=== PATIENT | male | born 1995 | race Two or more races ===

== ENCOUNTER 2019-02-23 08:19 | Emergency (ER) | payer SELFPAY ==
[~2019-02-23] VITALS: Ht 182.9 cm; Wt 99.8 kg
[2019-02-23 08:30] VITALS: BP 152/87
[2019-02-23] MEDS ORDERED: KETOROLAC 30 MG/ML VIAL. IV ONE (08:45)
[2019-02-23] MEDS ORDERED: IV NORMAL SALINE 1000ML BAG 1,000 ML IV SCH (08:45)
[2019-02-23] MEDS ORDERED: ONDANSETRON PF 4 MG/2 ML VIAL. IV ONE (08:45)
--- NOTE | 2019-02-23 08:52 | PHYS DOC ---
Past Medical History Past Medical History: No Pertinent History Past Surgical History: Appendectomy Alcohol Use: Occasionally Drug Use: None Adult General Chief Complaint Chief Complaint: ABDOMINAL PAIN HPI HPI Patient is a 23 year old male who presents with complaining of abdominal pain and nausea and vomiting and diarrhea. 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 Patient complaining of intermittent episodes of right-sided abdominal pain as a sharp pain that lasts for seconds to minutes and rated his pain 8/10. Patient also complaining of one or 2 episodes of vomiting after eating for the last 10 days with multiple episodes of nonbloody diarrhea. Patient complaining of decrease of appetite and dysuria. Patient denies fever and chills, sick contact, history of the same problem, or recent seeking medical attention for current problem. Review of Systems Review of Systems Constitutional: Denies fever or chills [] Eyes: Denies change in visual acuity, redness, or eye pain [] HENT: Denies nasal congestion or sore throat [] Respiratory: Denies cough or shortness of breath [] Cardiovascular: No additional information not addressed in HPI [] GI: Reports abdominal pain, nausea, vomiting, diarrhea [] : Denies dysuria or hematuria [] Musculoskeletal: Denies back pain or joint pain [] Integument: Denies rash or skin lesions [] Neurologic: Denies headache, focal weakness or sensory changes [] Endocrine: Denies polyuria or polydipsia [] All other systems were reviewed and found to be within normal limits, except as documented in this note. Current Medications Current Medications Current Medications Medications (Trade) Dose Ordered Sig/[facility] Start Time Stop Time Status Last Admin Dose Admin Ketorolac Tromethamine (Toradol 30mg Vial) 30 mg 1X ONCE 02/23/19 08:45 02/23/19 08:53 DC 02/23/19 09:02 30 MG Ondansetron HCl (Zofran) 4 mg 1X ONCE 02/23/19 08:45 02/23/19 08:53 DC 02/23/19 09:02 4 MG Sodium Chloride 1,000 ml @ 1,000 mls/hr Q1H 02/23/19 08:45 02/23/19 09:44 DC 02/23/19 09:02 1,000 MLS/HR Allergies Allergies Allergies Coded Allergies Type Severity Reaction Last Updated Verified Penicillins Allergy Unknown 02/23/19 Yes Physical Exam Physical Exam Constitutional: Well developed, well nourished, no acute distress, non-toxic appearance. [] HENT: Normocephalic, atraumatic, oropharynx moist. Eyes: PERRLA, EOMI, conjunctiva normal, no discharge. [] Neck: Normal range of motion, no tenderness, supple, no stridor. [] Cardiovascular:Heart rate regular rhythm, no murmur [] Lungs & Thorax: Bilateral breath sounds clear to auscultation [] Abdomen: Bowel sounds normal, soft, no tenderness, right quadrant guarding, no masses, no pulsatile masses. [] Skin: Warm, dry, no erythema, no rash. [] Back: No tenderness, no CVA tenderness. [] Extremities: No tenderness, no cyanosis, no clubbing, ROM intact, no edema. [] Neurologic: Alert and oriented X 3, normal motor function, normal sensory function, no focal deficits noted. [] Psychologic: Affect normal, judgement normal, mood normal. [] Current Patient Data Vital Signs Vital Signs Date Time Temp Pulse Resp B/P (MAP) Pulse Ox O2 Delivery O2 Flow Rate FiO2 02/23/19 08:30 98.6 60 16 152/87 (108) 97 Room Air 98.6 Lab Values Laboratory Tests Test 02/23/19 08:56 02/23/19 09:45 White Blood Count 6.3 x10^3/uL (4.0-11.0) Red Blood Count 4.91 x10^6/uL (4.30-5.70) Hemoglobin 15.6 g/dL (13.0-17.5) Hematocrit 45.6 % (39.0-53.0) Mean Corpuscular Volume 93 fL (79-100) Mean Corpuscular Hemoglobin 32 pg (25-35) Mean Corpuscular Hemoglobin Concent 34 g/dL (31-37) Red Cell Distribution Width 13.1 % (11.5-14.5) Platelet Count 258 x10^3/uL (140-400) Neutrophils (%) (Auto) 58 % (31-73) Lymphocytes (%) (Auto) 33 % (24-48) Monocytes (%) (Auto) 7 % (0-9) Eosinophils (%) (Auto) 1 % (0-3) Basophils (%) (Auto) 1 % (0-3) Neutrophils # (Auto) 3.6 x10^3/uL (1.8-7.7) Lymphocytes # (Auto) 2.1 x10^3/uL (1.0-4.8) Monocytes # (Auto) 0.5 x10^3/uL (0.0-1.1) Eosinophils # (Auto) 0.1 x10^3/uL (0.0-0.7) Basophils # (Auto) 0.1 x10^3/uL (0.0-0.2) Sodium Level 141 mmol/L (136-145) Potassium Level 4.0 mmol/L (3.5-5.1) Chloride Level 107 mmol/L (98-107) Carbon Dioxide Level 25 mmol/L (21-32) Anion Gap 9 (6-14) Blood Urea Nitrogen 9 mg/dL (8-26) Creatinine 0.9 mg/dL (0.7-1.3) Estimated GFR (Cockcroft-Gault) 102.8 BUN/Creatinine Ratio 10 (6-20) Glucose Level 105 mg/dL (70-99) H Calcium Level 8.9 mg/dL (8.5-10.1) Total Bilirubin 0.3 mg/dL (0.2-1.0) Aspartate Amino Transferase (AST) 16 U/L (15-37) Alanine Aminotransferase (ALT) 44 U/L (16-63) Alkaline Phosphatase 61 U/L (46-116) Total Protein 6.7 g/dL (6.4-8.2) Albumin 3.4 g/dL (3.4-5.0) Albumin/Globulin Ratio 1.0 (1.0-1.7) Lipase 62 U/L (73-393) L Urine Collection Type Unknown Urine Color Yellow Urine Clarity Clear Urine pH 6.5 Urine Specific Pool 1.015 Urine Protein Negative mg/dL (NEG-TRACE) Urine Glucose (UA) Negative mg/dL (NEG) Urine Ketones (Stick) Negative mg/dL (NEG) Urine Blood Negative (NEG) Urine Nitrite Negative (NEG) Urine Bilirubin Negative (NEG) Urine Urobilinogen Dipstick 1.0 mg/dL (0.2 mg/dL) Urine Leukocyte Esterase Negative (NEG) Urine RBC 0 /HPF (0-2) Urine WBC 1-4 /HPF (0-4) Urine Squamous Epithelial Cells Occ /LPF Urine Bacteria 0 /HPF (0-FEW) Urine Mucus Slight /LPF Urine Opiates Screen Neg (NEG) Urine Methadone Screen Neg (NEG) Urine Barbiturates Neg (NEG) Urine Phencyclidine Screen Neg (NEG) Urine Amphetamine/Methamphetamine Neg (NEG) Urine Benzodiazepines Screen Neg (NEG) Urine Cocaine Screen Neg (NEG) Urine Cannabinoids Screen Pos (NEG) Urine Ethyl Alcohol Neg (NEG) Laboratory Tests 02/23/19 08:56 Laboratory Tests 02/23/19 08:56 EKG EKG [] Radiology/Procedures Radiology/Procedures [facility] [address] [place] [address] IMAGING REPORT Signed PATIENT: FERDINAND BLACKWELL ACCOUNT: [id number] : 1995 LOCATION: ER AGE: 23 SEX: M EXAM STATUS: REG ER ORD. PHYSICIAN: DONITA GARCIA MD REASON: right side abdominal pain PROCEDURE: ABDOMEN LTD Limited abdomen ultrasound study Clinical indications: Right upper quadrant abdominal pain FINDINGS: The pancreas and abdominal aorta and IVC are obscured by overlying bowel gas. There is diffuse attenuation of sound throughout the liver which may be seen with fatty infiltration of the liver. This limits sonographic evaluation of the liver for focal hepatic lesions. No focal hepatic mass is seen otherwise. The liver is enlarged measuring 20.3 cm in length. Biliary sludge is seen within the gallbladder. No gallbladder distention or gallbladder wall thickening is seen. The extra hepatic bile duct measures 5 mm in caliber which is normal. The length of the right kidney is 12.7 cm. No hydronephrosis or renal mass or perinephric fluid collection is seen on this side. IMPRESSION: Biliary sludge within the gallbladder. Fatty infiltration of the liver. Hepatomegaly. Electronically signed by: Austin Palmer MD (02/23/2019 9:36 AM) [facility] DICTATED and SIGNED BY: AUSTIN PALMER MD DATE: 02/23/19 0936 Course & Med Decision Making Course & Med Decision Making Pertinent Labs and Imaging studies reviewed. (See chart for details) Evaluation of patient in ED showed 23-year-old male patient with complaining of upper abdominal pain and episodes of nausea and vomiting and diarrhea for 2 weeks. Patient had unremarkable physical exam and labs. Abdominal ultrasound showed gallbladder sludge. Patient with IV fluid and Zofran and Toradol and felt better. Patient was advised to follow up with on-call surgeon or primary care physician for more evaluation regarding gallbladder sludge. Patient was advised to not eat greasy food. I've spoken with the patient and/or caregivers. I've explained the patient's condition, diagnosis and treatment plan based on information available to me at this time. I've answered the patient's and/or caregivers questions and addressed any concerns. The patient and/or caregivers have a good understanding the patient's diagnosis, condition and treatment plan as can be expected at this point. Vital signs have been stabilized. The patient's condition is stable for discharge from the emergency department. The patient will pursue further outpatient evaluation with her primary care provider or other designated consulting physician as outlined in the discharge instructions. Patient and/or caregivers are agreeable to this plan of care and follow-up instructions have been explained in detail. The patient and/or caregivers have received these instructions in written format and expressed understanding of these discharge instructions. The patient and her caregivers are aware that if any significant change in condition or worsening of symptoms should prompt him to immediately return to this of the closest emergency department. If an emergent department is not readily available I would encourage him to call 911. Tation Disclaimer Dragon Disclaimer This electronic medical record was generated, in whole or in part, using a voice recognition dictation system. Departure Departure Impression: Primary Impression: Gallbladder sludge Additional Impression: Acute gastroenteritis Disposition: HOME, SELF-CARE (@1056) Condition: IMPROVED Referrals: VILMA TOWNSEND MD Patient Instructions: Biliary Colic, Viral Gastroenteritis Additional Instructions: Drink plenty of liquids Follow-up with your primary care physician in 3-5 days Return to ER if not getting better Do not eat greasy food Follow-up with on-call surgeon for gallbladder evaluation and treatment Scripts Tramadol Hcl (ULTRAM) 50 Mg Tablet 50 MG PO Q6HRS PRN for PAIN, #14 TAB 0 Refills Prov: DONITA GARCIA MD 02/23/19 Ondansetron Hcl (ZOFRAN) 4 Mg Tablet 1 TAB PO PRN Q6-8HRS for nausea, #12 TAB Prov: DONITA GARCIA MD 02/23/19 Problem Qualifiers DONITA GARCIA MD Feb 23, 2019 08:52
[2019-02-23 09:08] LABS: BASO # 0.1 x10^3/uL (0.0-0.2); BASO % 1 % (0-3); EOS # 0.1 x10^3/uL (0.0-0.7); EOS % 1 % (0-3); HEMATOCRIT 45.6 % (39.0-53.0); HEMOGLOBIN 15.6 g/dL (13.0-17.5); LYMPH # 2.1 x10^3/uL (1.0-4.8); LYMPH % 33 % (24-48); MEAN CORPUSCULAR HEMOGLOBIN 32 pg (25-35); MEAN CORPUSCULAR HGB CONC 34 g/dL (31-37); MEAN CORPUSCULAR VOLUME 93 fL (79-100); MONO # 0.5 x10^3/uL (0.0-1.1); MONO % 7 % (0-9); NEUT # 3.6 x10^3/uL (1.8-7.7); NEUT % 58 % (31-73); PLATELET COUNT 258 x10^3/uL (140-400); RED BLOOD COUNT 4.91 x10^6/uL (4.30-5.70); RED CELL DISTRIBUTION WIDTH 13.1 % (11.5-14.5); WHITE BLOOD COUNT 6.3 x10^3/uL (4.0-11.0)
[2019-02-23 09:20] LABS: CALCIUM 8.9 mg/dL (8.5-10.1); CREATININE 0.9 mg/dL (0.7-1.3); GFR 102.8
[2019-02-23 09:25] LABS: ALBUMIN 3.4 g/dL (3.4-5.0); TOTAL BILIRUBIN 0.3 mg/dL (0.2-1.0); TOTAL PROTEIN 6.7 g/dL (6.4-8.2)
--- NOTE | 2019-02-23 09:39 | RAD ---
Limited abdomen ultrasound study Clinical indications: Right upper quadrant abdominal pain FINDINGS: The pancreas and abdominal aorta and IVC are obscured by overlying bowel gas. There is diffuse attenuation of sound throughout the liver which may be seen with fatty infiltration of the liver. This limits sonographic evaluation of the liver for focal hepatic lesions. No focal hepatic mass is seen otherwise. The liver is enlarged measuring 20.3 cm in length. Biliary sludge is seen within the gallbladder. No gallbladder distention or gallbladder wall thickening is seen. The extra hepatic bile duct measures 5 mm in caliber which is normal. The length of the right kidney is 12.7 cm. No hydronephrosis or renal mass or perinephric fluid collection is seen on this side. IMPRESSION: Biliary sludge within the gallbladder. Fatty infiltration of the liver. Hepatomegaly. Electronically signed by: Roger Palmer MD (02/23/2019 9:36 AM) [facility]
[2019-02-23 09:56] LABS: BILIRUBIN,URINE NEGATIVE (NEG); CLARITY,URINE CLEAR; COLOR,URINE YELLOW; NITRITE,URINE NEGATIVE (NEG); PH,URINE 6.5; PROTEIN,URINE NEGATIVE (NEG-TRACE)
[2019-02-23 10:22] LABS: RBC,URINE 0 /HPF (0-2)
[2019-02-23 10:23] LABS: BACTERIA,URINE 0 /HPF (0-FEW); SQUAMOUS EPITHELIAL CELL,UR OCC /LPF
[2019-02-23 10:48] LABS: AMPHETAMINE/METHAMPHETAMINE NEG (NEG); BARBITURATES NEG (NEG); BENZODIAZEPINES NEG (NEG); CANNABINOIDS POS (NEG); COCAINE NEG (NEG); METHADONE NEG (NEG); OPIATES NEG (NEG); PHENCYCLIDINE NEG (NEG)
[2019-02-23] MEDS ORDERED: ONDA4TAB7 PO (10:59)
[2019-02-23] MEDS ORDERED: TRAM-48 PO (10:59)
== END 2019-02-23 11:00 | disposition home or self-care (01) ==
LOC: ER 08:19
DX: K82.9 Disease of gallbladder, unspecified (principal); K52.89 Other specified noninfective gastroenteritis and colitis; R30.0 Dysuria; Z90.89 Acquired absence of other organs; Z88.0 Allergy status to penicillin
CPT/HCPCS: 36415; 76705; 80053; 80307; 81001; 83690; 85025; 96361; 96374; 96375; 99285; J1885; J2405; J7030

== ENCOUNTER 2019-02-26 11:46 | Emergency (ER) | payer SELFPAY ==
[~2019-02-26] VITALS: Ht 190.5 cm; Wt 99.8 kg
[~2019-02-26 11:46] MED LIST: ONDA4TAB7 PO; TRAM-48 PO
--- NOTE | 2019-02-26 13:54 | PHYS DOC ---
Past Medical History Past Medical History: No Pertinent History Past Surgical History: Appendectomy Alcohol Use: Occasionally Drug Use: None Adult General Chief Complaint Chief Complaint: FLANK PAIN [facility] HPI Patient is a 23 year old male, accompanied by his friends, who presents to the emergency department with a request for a work excuse. Patient states he was seen here in the emergency department 3 days ago for right upper quadrant abdominal pain. Patient states he was sent home without a work note and told that there was sludge on his gallbladder. Patient has not followed up with a surgeon, as he is a self-pay patient. He denies any severe pain at this moment. He states that the pain increases when he eats food and when it is present and is anywhere from a 6 to a 10 on the pain scale. He denies any fever, dysuria, hematuria, vomiting, diarrhea, back pain, shortness of breath, or cough at this time. Patient states that he has had loose stools that float on the surface of the toilet water, he denies any bloody stools. Patient is requesting information about special diet needs to be printed in [place]. He declines any lab work or imaging at this time. Review of Systems Review of Systems Constitutional: Denies fever or chills [] Eyes: Denies redness, or eye pain [] HENT: Denies nasal congestion or sore throat [] Respiratory: Denies cough or shortness of breath [] Cardiovascular: No additional information not addressed in HPI [] GI: see history of present illness : Denies dysuria or hematuria [] Musculoskeletal: Denies back pain or joint pain [] Integument: Denies rash or skin lesions [] Neurologic: Denies headache, focal weakness or sensory changes [] Complete systems were reviewed and found to be within normal limits, except as documented in this note. Allergies Allergies Allergies Coded Allergies Type Severity Reaction Last Updated Verified Penicillins Allergy Unknown 02/23/19 Yes Physical Exam Physical Exam Constitutional: Well developed, well nourished, no acute distress, non-toxic appearance, obese. [] HENT: Normocephalic, atraumatic, bilateral external ears normal, oropharynx moist, nose normal. [] Eyes: conjunctiva normal, no discharge. [] Neck: Normal range of motion, no stridor. [] Cardiovascular:Heart rate regular rhythm, no murmur [] Lungs & Thorax: Bilateral breath sounds clear to auscultation [] Abdomen: Bowel sounds normal, soft, ruq tenderness, no guarding no masses, no pulsatile masses. [] Skin: Warm, dry, no erythema, no rash. [] Back: No CVA tenderness. [] Extremities: No cyanosis, ROM intact, no edema. [] Neurologic: Alert and oriented X 3, no focal deficits noted. [] Psychologic: Affect normal, judgement normal, mood normal. [] Current Patient Data Vital Signs Vital Signs Date Time Temp Pulse Resp B/P (MAP) Pulse Ox O2 Delivery O2 Flow Rate FiO2 02/26/19 13:00 98.6 65 20 145/84 (104) 98 Room Air 98.6 EKG EKG [] Radiology/Procedures Radiology/Procedures [] Course & Med Decision Making Course & Med Decision Making Pertinent Labs and Imaging studies reviewed. (See chart for details) []Patient is a 23-year-old male who presented to the emergency department for continued right upper quadrant pain. He stated he had been seen in the ER 3 days prior to today's visit and he was diagnosed with sludge in his gallbladder told to follow up with Dr. Townsend. The patient states he needs a work excuse and would like diet instructions in [place]. I offered to do blood work and imaging, the patient declined further testing at this time. 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 Patient states he does not have insurance but is trying to save up money to be able to contact Dr. Townsend for further evaluation and treatment. I provided patient with a work excuse and diet instructions in [place]. Patient verbalized an understanding and will return to emergency department if symptoms worsen. The patient and his family verbalized an understanding of instructions, follow-up, return to the ER instructions and was in agreement with plan of care. Dragon Disclaimer Dragon Disclaimer This electronic medical record was generated, in whole or in part, using a voice recognition dictation system. Departure Departure Impression: Primary Impression: Right upper quadrant abdominal pain Additional Impression: Encounter to obtain excuse from work Disposition: HOME, SELF-CARE Condition: STABLE Referrals: NO PCP (PCP) VILMA TOWNSEND MD Patient Instructions: Abdominal Pain, [id number], Fat and Cholesterol Control Diet, [id number] Additional Instructions: Follow the diet instructions provided. Off work for 2 days. Do not take the tramadol that was prescribed when you are working. Follow up with Dr. Townsend as previously instructed. Return to the ER if symptoms worsen. Problem Qualifiers JEREMIAS LOW APRN Feb 26, 2019 13:54
[2019-02-26 14:15] VITALS: BP 149/87
== END 2019-02-26 14:21 | disposition home or self-care (01) ==
LOC: ER 11:46
DX: R10.11 Right upper quadrant pain (principal); Z02.79 Encounter for issue of other medical certificate; Z90.89 Acquired absence of other organs; Z88.0 Allergy status to penicillin
CPT/HCPCS: 99281